=== PATIENT | female | born 1955 | race Caucasian/White ===

== ENCOUNTER 2024-12-26 06:53 | Day surgery (SDC) | payer MEDICARE, OTHER ==
[2024-12-26] MEDS ORDERED: Lidocaine 2% 100 MG/5 ML Syringe IVPUSH ONE (06:54)
[2024-12-26] MEDS ORDERED: Propofol 200 MG/20 ML SDV IV ONE (06:54)
[2024-12-26] MEDS ORDERED: Sodium Chloride 0.9% 10 ML Syringe FLUSH PRN (07:00)
[2024-12-26 08:01] VITALS: BP 107/71; PULSE 61
[2024-12-26] MEDS: Lactated Ringers 1,000 ML IV SCH (08:23)
[2024-12-26] MEDS: Simethicone Drops 40 MG/0.6 ML 30 ML Bottle ONE (08:47)
== END 2024-12-26 10:10 | disposition home or self-care (01) ==
LOC: FB.SDS 06:53
PROVIDERS: ATTEND Surgery
DX: Z12.11 Encounter for screening for malignant neoplasm of colon (principal); K57.30 Diverticulosis of large intestine without perforation or abscess without bleeding; E78.5 Hyperlipidemia, unspecified; I10 Essential (primary) hypertension; F17.210 Nicotine dependence, cigarettes, uncomplicated; Z88.5 Allergy status to narcotic agent; Z79.899 Other long term (current) drug therapy; Z86.0101 Personal history of adenomatous and serrated colon polyps
CPT/HCPCS: 00812; A9270-GY; J2704; J7120